=== PATIENT | male | born 1980 | race Caucasian/White ===

== ENCOUNTER 2017-05-18 10:48 | Emergency (ER) | payer MEDICAID ==
[2017-05-18 10:53] VITALS: BP 105/73; PULSE 66; RESP 16; TEMP 98.2; O2SAT 96
--- NOTE | 2017-05-18 11:40 | EDPHY ---
H & P Time Seen by Provider: 05/18/17 11:00 HPI/ROS: CHIEF COMPLAINT: Left calf pain HISTORY OF PRESENT ILLNESS: 36-year-old male presents to the emergency department with pain in his left calf. Patient was playing basketball last night and felt a pop in his left calf. He is able to ambulate, however this does cause pain. Denies any other trauma or injury. ROS: Denies numbness or tingling in his toes, swelling in his left calf, pain in his left ankle or knee. Past Medical/Surgical History: Orthopedic surgery, facial implants Social History: Single and lives in [place] Smoking Status: Never smoked Physical Exam: On exam there is no calf swelling. No ecchymosis. No abrasions or puncture wounds. He has reproducible pain with palpation to the left distal calf. There is no palpable deformity although patient has reproducible pain with palpation. Achilles tendon is intact. Patient is able to fully dorsi and plantar flex. He is able to walk normally however. No palpable bony tenderness in his left ankle or left knee. Normal sensation to light touch with normal 2 point discrimination. Constitutional: Initial Vital Signs Temperature (C) 36.8 C 05/18/17 10:51 Heart Rate 66 05/18/17 10:51 Respiratory Rate 16 05/18/17 10:51 Blood Pressure 105/73 05/18/17 10:51 O2 Sat (%) 96 05/18/17 10:51 O2 Delivery Mode Room Air Allergies/Adverse Reactions: metoclopramide HCl [From Reglan] Allergy (Verified 04/02/16 20:44) Home Medications: Medication Instructions Recorded ADDERALL 12.5 MG TABLET 05/18/17 MDM/Departure - MDM Procedures: Patient was placed in a Conti boot and examined post application in good placement with normal FLATWORK FINISHER. ED Course/Re-evaluation: I do not think imaging studies are indicated. The patient likely has partial gastrocnemius or soleus tear. His Achilles tendon is intact. The patient was placed in a Conti boot and given orthopedic referral. Patient was comfortable with this plan. - Depart Disposition: Home, Routine, Self-Care Clinical Impression: Gastrocnemius strain, left Qualifiers: Encounter type: initial encounter Qualified Code(s): S86.112A - Strain of other muscle(s) and tendon(s) of posterior muscle group at lower leg level, left leg, initial encounter Gastrocnemius muscle tear Qualifiers: Encounter type: initial encounter Laterality: left Qualified Code(s): S86.112A - Strain of other muscle(s) and tendon(s) of posterior muscle group at lower leg level, left leg, initial encounter Condition: Good Instructions: Tendon Rupture (ED) Additional Instructions: Gallito grahamot for comfort and support. Weightbear as tolerated. Follow up with orthopedic surgeon next to recheck. Ibuprofen 600 mg every 8 hr as needed for pain Referrals: Corrie Shannon MD [Medical Doctor] - 2-3 days without fail (Orthopedic surgeon on- call)
== END 2017-05-18 11:50 | disposition home or self-care (01) ==
DX: S86.112A Strain of other muscle(s) and tendon(s) of posterior muscle group at lower leg level, left leg, initial encounter (principal); X58.XXXA Exposure to other specified factors, initial encounter; Y99.8 Other external cause status; Y93.67 Activity, basketball
CPT/HCPCS: L4386

== ENCOUNTER 2017-06-20 18:05 | Emergency (ER) | payer MEDICAID ==
[2017-06-20] MEDS ORDERED: ONDANSETRON DISINTEGRATING 4 MG TAB PO ONE (18:36)
[2017-06-20] MEDS ORDERED: IBUPROFEN 600 MG TAB PO ONE (18:36)
[2017-06-20] MEDS ORDERED: ACETAMINOPHEN 500 MG TAB PO ONE (18:53)
[2017-06-20 19:48] VITALS: RESP 18; O2SAT 97
[2017-06-20] MEDS ORDERED: NS 1,000 ML IV ONE ×2 (20:09)
[2017-06-20] MEDS ORDERED: DEXAMETHASONE 10 MG/ML VIAL IVP ONE (20:10)
[2017-06-20] MEDS ORDERED: KETOROLAC 30 MG/1 ML SDV IVP ONE (20:10)
--- NOTE | 2017-06-20 20:18 | EDPHY ---
H & P Time Seen by Provider: 06/20/17 18:53 HPI/ROS: HPI Flu symptoms. 28-year-old male by private vehicle. This patient reports 4 days of intermittent high fever, sweats, sore throat, intermittent dry cough, and intermittent dull, gradual onset frontal headache. He reports that for 2 years he had this same group of symptoms every 6 weeks and was seen in our emergency department multiple times for this. No clear diagnosis was ever established. He was referred to infectious disease. They did not have a a diagnosis for this. He then was asymptomatic for about a year and this illness returned 4 days ago exactly as it has many times over the last several years. He denies any ill contacts. He is not on any medications currently. Is not immune compromised. ROS: Constitutional: As above. No weakness. Eyes: No discharge. No changes in vision. ENT: As above. No nasal congestion or rhinorrhea. Respiratory: As above. No shortness of breath. Cardiac: No chest pain, no palpitations. Gastrointestinal: No abdominal pain, no vomiting, no diarrhea. Genitourinary: No hematuria. No dysuria or increased frequency with urination. Musculoskeletal: No back pain. No neck pain. No myalgias or arthralgias. Skin: No rashes. Neurological: As above. No focal weakness or altered sensation. Past medical history: As above, facial surgery, orthopedic surgery. Social history: Nonsmoker. No alcohol. No several roommates. Physical Exam: General Appearance: Alert, no distress. This patient is responding to questions appropriately and in full sentences. This patient appears well- hydrated and well-nourished. Eyes: Pupils equal and round no pallor or injection. No lid edema, erythema or injection. ENT, Mouth: Mucous membranes are moist. Pharyngeal erythema, tonsillar and posterior pharyngeal exudates which are whitish, greater on the right side versus the left side. No asymmetry to suggest abscess. No stridor on auscultation of his neck. No voice changes. Respiratory: There are no retractions, lungs are clear to auscultation with good air movement bilaterally. Cardiovascular: Regular rate and rhythm. No murmur. Neurological: Motor sensory function is grossly intact. Cranial nerves are normal. Gait is normal. Skin: Warm and dry, no rashes. Musculoskeletal: Neck is supple and nontender. No pain on flexion of his neck. Extremities are symmetrical. All joints range without pain or impingement. Psychiatric: No agitation. No depression. Database: EKG: Imaging: Procedures: Emergency department course: Vital signs reviewed. He is febrile and tachycardic. IV placed. He was started on IV normal saline with 2 L to be given over the next 1-2 hours. He has no contraindications to NSAIDs. He will be given 30 mg of IV Toradol and 10 mg of IV Decadron for his pharyngitis. 9:10 p.m., patient re-evaluated. Resting comfortably at this time. He states that he feels much better after IV fluids and medications as above. I reviewed the results of his emergency department workup with him. He states that these results are identical every time he comes here. I discussed doing a lumbar puncture. He states that he has had this done before and it was nondiagnostic. He declines this test. The patient competently engages in shared decision making. They demonstrate capacitance to make decisions. He feels comfortable going home now. I will give him a referral to ENT as well as Infectious Disease. Return to emergency department precautions were thoroughly reviewed with him. All of his questions were answered. He was discharged in good condition. Differential Diagnosis: The differential diagnosis on this patient includes but is not limited to mononucleosis, streptococcal pharyngitis, influenza, viral syndrome. Pneumonia , peritonsillar abscess, retropharyngeal abscess, tracheitis, meningitis, other serious bacterial infection unlikely. This represents a partial list of diagnoses considered. These considerations are based on history, physical exam , past history, reassessment and diagnostic testing. Smoking Status: Never smoked Constitutional: Initial Vital Signs Temperature (C) 39.4 C H 06/20/17 18:18 Heart Rate 108 H 06/20/17 18:18 Respiratory Rate 20 06/20/17 18:18 Blood Pressure 109/86 H 06/20/17 18:18 O2 Sat (%) 94 06/20/17 18:18 O2 Delivery Mode Room Air Allergies/Adverse Reactions: metoclopramide HCl [From Reglan] Allergy (Verified 04/02/16 20:44) Home Medications: Medication Instructions Recorded NK [No Known Home Meds] 06/20/17 Medical Decision Making - Diagnostics Imaging Results: Imaging Impressions Chest X-Ray 06/20/17 18:53 Impression: Normal. - Data Points Laboratory Results: Laboratory Results 06/20/17 20:15 06/20/17 20:15 06/20/17 06/20/17 06/20/17 Unknown 20:15 20:15 WBC RBC Hgb Hct MCV MCH MCHC RDW Plt Count MPV Neut % (Auto) Lymph % (Auto) Grant % (Auto) Eos % (Auto) Baso % (Auto) Nucleat RBC Rel Count Absolute Neuts (auto) Absolute Lymphs (auto) Absolute Monos (auto) Absolute Eos (auto) Absolute Basos (auto) Absolute Nucleated RBC Immature Gran % Immature Gran # Sodium 135 mEq/L mEq/L (135-145) Potassium 3.5 mEq/L mEq/L (3.5-5.2) Chloride 98 mEq/L mEq/L (97-110) Carbon Dioxide 23 mEq/l mEq/l (22-31) Anion Gap 14 mEq/L mEq/L (8-16) BUN 17 mg/dL mg/dL (7-23) Creatinine 0.9 mg/dL mg/dL (0.7-1.3) Estimated GFR > 60 Glucose 141 mg/dL H mg/dL (70-100) Calcium 9.5 mg/dL mg/dL (8.5-10.4) Nasal Influenza A PCR Nasal Influenza B PCR Monoscreen NEGATIVE (NEGATIVE) Group A Strep Screen Group A Strep DNA Pending 06/20/17 06/20/17 06/20/17 20:15 20:05 18:40 WBC 15.02 10^3/uL H 10^3/uL (3.80-9.50) RBC 4.78 10^6/uL 10^6/uL (4.40-6.38) Hgb 15.4 g/dL g/dL (13.7-17.5) Hct 42.7 % % (40.0-51.0) MCV 89.3 fL fL (81.5-99.8) MCH 32.2 pg pg (27.9-34.1) MCHC 36.1 g/dL g/dL (32.4-36.7) RDW 11.8 % % (11.5-15.2) Plt Count 223 10^3/uL 10^3/uL (150-400) MPV 9.0 fL fL (8.7-11.7) Neut % (Auto) 78.7 % H % (39.3-74.2) Lymph % (Auto) 8.5 % L % (15.0-45.0) Grant % (Auto) 11.9 % % (4.5-13.0) Eos % (Auto) 0.0 % L % (0.6-7.6) Baso % (Auto) 0.5 % % (0.3-1.7) Nucleat RBC Rel Count 0.0 % % (0.0-0.2) Absolute Neuts (auto) 11.82 10^3/uL H 10^3/uL (1.70-6.50) Absolute Lymphs (auto) 1.28 10^3/uL 10^3/uL (1.00-3.00) Absolute Monos (auto) 1.78 10^3/uL H 10^3/uL (0.30-0.80) Absolute Eos (auto) 0.00 10^3/uL L 10^3/uL (0.03-0.40) Absolute Basos (auto) 0.08 10^3/uL 10^3/uL (0.02-0.10) Absolute Nucleated RBC 0.00 10^3/uL 10^3/uL (0-0.01) Immature Gran % 0.4 % % (0.0-1.1) Immature Gran # 0.06 10^3/uL 10^3/uL (0.00-0.10) Sodium Potassium Chloride Carbon Dioxide Anion Gap BUN Creatinine Estimated GFR Glucose Calcium Nasal Influenza A PCR NEGATIVE FOR FLU A (NEGATIVE) Nasal Influenza B PCR NEGATIVE FOR FLU B (NEGATIVE) Monoscreen Group A Strep Screen NEGATIVE (NEGATIVE) Group A Strep DNA Medications Given: Discontinued Medications Acetaminophen (Tylenol) 1,000 mg PO EDNOW ONE Stop: 06/20/17 18:54 Last Admin: 06/20/17 19:46 Dose: 1,000 mg Dexamethasone (Decadron Injection) 10 mg IVP EDNOW ONE Stop: 06/20/17 20:11 Last Admin: 06/20/17 20:18 Dose: 10 mg Sodium Chloride (Ns) 1,000 mls @ 0 mls/hr IV ONCE ONE; Wide Open PRN Reason: Protocol Stop: 02/06/18 20:10 Last Admin: 06/20/17 20:17 Dose: 1,000 mls Sodium Chloride (Ns) 1,000 mls @ 0 mls/hr IV ONCE ONE; Wide Open PRN Reason: Protocol Stop: 06/20/17 20:10 Last Admin: 06/20/17 20:19 Dose: 1,000 mls Ibuprofen (Motrin) 600 mg PO EDNOW ONE Stop: 06/20/17 18:37 Last Admin: 06/20/17 18:42 Dose: 600 mg Ketorolac Tromethamine (Toradol) 30 mg IVP EDNOW ONE Stop: 06/20/17 20:11 Last Admin: 06/20/17 20:18 Dose: 30 mg Ondansetron HCl (Zofran Odt) 4 mg PO EDNOW ONE Stop: 06/20/17 18:37 Last Admin: 06/20/17 18:40 Dose: 4 mg Departure - Departure Disposition: Home, Routine, Self-Care Clinical Impression: Pharyngitis, Viral syndrome Condition: Good Instructions: Viral Syndrome (ED), Pharyngitis (ED) Additional Instructions: Read and follow provided instructions. Follow-up with ENT and Infectious Disease as discussed for for evaluation within the next 2-3 days. Call their office is tomorrow morning at 9:00 a.m.. Explain this is for an emergency department follow-up. You can start taking ibuprofen tomorrow after 12 noon as discussed for pain control. Ibuprofen dosin mg every 6 hours with meals for the next 3 days only. Take only as needed for pain. You can take Tylenol as directed with ibuprofen for control of fever. Keep yourself well hydrated by drinking plenty of fluids. A good fluid to drink is Gatorade mixed with water in a 1-1 dilution over ice. Return to the emergency department for worsening symptoms, worsened cough, difficulty breathing, worsening sore throat, weakness, high fever or other serious concerns. Referrals: NEISHA HERNANDEZ [Other] - As per Instructions [facility] (ED,. [Edm Groups for Call Sched] - As per Instructions Maynor Hernandez MD [Medical Doctor] - As per Instructions
[2017-06-20 20:24] LABS: PLATELET COUNT 223 10^3/uL (150-400)
[2017-06-20 21:25] VITALS: BP 121/77; PULSE 85; TEMP 99.9
== END 2017-06-20 21:25 | disposition home or self-care (01) ==
DX: J02.8 Acute pharyngitis due to other specified organisms (principal); B97.89 Other viral agents as the cause of diseases classified elsewhere; E86.9 Volume depletion, unspecified
CPT/HCPCS: 96374; J1100; J1885

== ENCOUNTER 2017-08-20 15:35 | Emergency (ER) | payer MEDICAID ==
--- NOTE | 2017-08-20 16:12 | EDPHY ---
H & P Stated Complaint: gastroc rupture may/rehabbing/swelling l leg/coughed up some blood Time Seen by Provider: 08/20/17 16:11 HPI/ROS: CHIEF COMPLAINT: Left leg swelling, spitting up blood HISTORY OF PRESENT ILLNESS: The patient is a 36 y/o male complaining of left leg swelling and pain 10 weeks out from a calf muscle rupture. He also reports hemoptysis this morning after using a THC edible. After injuring his leg in the beginning of May, he has kept the leg immobilized and started PT one week ago. He's noticed slow improvement since the original injury. On Monday after a PT session, he had pain in his left calf as severe as the first day of his injury. He had difficulty standing due to pain and noticed increased swelling making it difficult to wear his shoe and discoloration around his ankle. He took ibuprofen for pain and last night used a THC edible to help him sleep. This morning he woke "with a mucus feeling in my throat" and spit up some blood; he thinks this could be related to his recent tonsil issues (recurrent tonsillitis ) or maybe to the THC edible he consumed. His leg pain is not worse with palpation and the discoloration and pain with standing has improved today. He denies hematemesis, blood in stool, abdominal pain, chest pain, dyspnea, fever, cough, recent illness, or recent trauma. REVIEW OF SYSTEMS: A ten point review of systems was performed and is negative with the exception of the items mentioned in the HPI. Past medical history: Recurrent strep infection scheduled for tonsillectomy this month Past surgical history: Facial surgery, orthopedic surgery. 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 He is not . Orthopedist: GWYN oRsario with Dr. Shannon. General Appearance: Alert. Vital signs reviewed. Blood pressure 110/95. Eyes: Pupils equal and round, no conjunctival injection, no discharge. Anicteric. ENT, Mouth: Mucous membranes are moist, no oropharyngeal erythema or edema. Tiny ecchymotic spots on lower lip. Neck: No lymphadenopathy, supple. Respiratory: Lungs are clear to auscultation; no wheezes, rales, or rhonchi. Cardiovascular: Regular rate and rhythm; no murmur, rub, or gallop. Gastrointestinal: Abdomen is soft and nontender, no masses or organomegaly, bowel sounds normal. Skin: Warm and dry, no rashes on exposed skin, normal color. Back: Nontender to palpation over the thoracolumbar spine. No CVAT. Extremities: No lower extremity edema, no obvious calf tenderness or swelling. I do not appreciate bruising. He is able to flex and extend at the left knee and ankle without difficulty. Neurological: Alert and oriented. Moving all four extremities easily and equally. Psychiatric: Normal affect. - Personal History Current Tetanus/Diphtheria Vaccine: Yes Tetanus Vaccine Date: <10 YEARS - Medical/Surgical History Hx Asthma: No Hx Chronic Respiratory Disease: No Hx Diabetes: No Hx Cardiac Disease: No Hx Renal Disease: No Hx Cirrhosis: No Hx Alcoholism: No Hx HIV/AIDS: No Hx Splenectomy or Spleen Trauma: No Other PMH: ortho surg, FACIAL IMPLANT - Social History Smoking Status: Never smoked Constitutional: Initial Vital Signs Temperature (C) 37 C 08/20/17 15:39 Heart Rate 79 08/20/17 15:39 Respiratory Rate 18 08/20/17 15:39 Blood Pressure 110/95 H 08/20/17 15:39 O2 Sat (%) 94 08/20/17 15:39 O2 Delivery Mode Room Air Allergies/Adverse Reactions: metoclopramide HCl [From Reglan] Allergy (Verified 08/20/17 15:39) MOOD ALTERATION Home Medications: Medication Instructions Recorded Adderall 10 MG (*) BID 08/17/17 Herbals/Supplements -Info Only DAILY 08/17/17 Thc Edibles 08/20/17 Medical Decision Making - Diagnostics Imaging: Discussed imaging studies w/ machine scallop cutter Radiologist ED Course/Re-evaluation: This is a 36 y/o male with history of left gastrocnemius tear 10 weeks ago who presents with left calf pain, swelling, and bruising after a PT session on Monday, 2 days ago. His exam is completely benign. Low suspicion for DVT; however, he is concerned about this and it is simple to rule out. Left leg US ordered. Left leg US: negative Reevaluated patient and discussed findings. He will follow up with his PT/ orthopedist as needed. Return precautions discussed. He is comfortable with this plan. Differential Diagnosis: Considered a differential diagnosis that includes but is not limited to over aggressive physical therapy causing resurgence of his pain, DVT, superficial thrombophlebitis, Corado cyst, compartment syndrome, and infection. Departure - Departure Disposition: Home, Routine, Self-Care Clinical Impression: Leg pain Qualifiers: Laterality: left Qualified Code(s): M79.605 - Pain in left leg Condition: Good Instructions: Leg Pain (ED) Additional Instructions: Follow up with your orthopedist and/or physical therapist this week for continued symptoms. Return to the ED for worsening of condition. Referrals: CHELSEA HERNANDEZ [Other] - As per Instructions Report Scribed for: Lyndsey Ma Report Scribed by: Amparo Cuevas Date of Report: 08/20/17 Time of Report: 16:49 Physician Review and Approval Statement: 08/25/17 15:27 Portions of this note were transcribed by the site medical director. I, Dr. Lyndsey Ma, personally performed the history, physical exam, and medical decision- making; and confirmed the accuracy of the information in the transcribed note.
[2017-08-20 17:41] VITALS: BP 115/68
== END 2017-08-20 17:43 | disposition home or self-care (01) ==
DX: M79.605 Pain in left leg (principal)

== ENCOUNTER 2017-08-28 11:29 | Observation (INO) | payer MEDICAID ==
[2017-08-28] MEDS ORDERED: LR 1,000 ML IV ONE (11:46)
[2017-08-28] MEDS ORDERED: ceFAZolin 2 GM/SWFI 2 GM/20 ML SYR IVP ONE (11:58)
[2017-08-28] MEDS ORDERED: DEXAMETHASONE 10 MG/ML VIAL IVP ONE (11:58)
[2017-08-28] MEDS ORDERED: BUPIVACAINE 0.25% 30 ML SDV ONE (12:19)
--- NOTE | 2017-08-28 12:19 | PDHPUP ---
History & Physical Update H&P update statement: This history and physical update is based on an assessment of the patient which was completed after admission or registration (within 24 hours), but prior to the surgery/procedure. H&P update: H&P reviewed & patient examined, no change in patient's condition since H&P completed
[2017-08-28] MEDS ORDERED: MIDAZOLAM 2 MG/2 ML VIAL ONE (12:25)
[2017-08-28] MEDS ORDERED: fentaNYL 250 MCG/5 ML INJ ONE (12:25)
[2017-08-28] MEDS ORDERED: DEXAMETHASONE 4 MG/ML VIAL ONE ×2 (12:26)
[2017-08-28] MEDS ORDERED: LIDOCAINE 2% 100 MG/5 ML SYR ONE (12:26)
[2017-08-28] MEDS ORDERED: RANITIDINE 50 MG/2 ML VIAL ONE (12:26)
[2017-08-28] MEDS ORDERED: ROCURONIUM 50 MG/5 ML VIAL ONE (12:26)
[2017-08-28] MEDS ORDERED: PROPOFOL 200 MG/20 ML VIAL ONE (12:26)
[2017-08-28] MEDS ORDERED: ONDANSETRON 4 MG/2 ML VIAL IVP PRN ×2 (13:25→13:38)
[2017-08-28] MEDS ORDERED: D5W 1/2 NS 1,000 ML IV SCH (13:30)
[2017-08-28] MEDS ORDERED: fentaNYL 100 MCG/2 ML INJ IVP PRN (13:38)
[2017-08-28] MEDS ORDERED: ALBUTEROL 3 ML DEYVIAL IH PRN (13:38)
[2017-08-28] MEDS ORDERED: oxyCODONE IR 5 MG TAB PO PRN (13:38)
[2017-08-28] MEDS ORDERED: NALOXONE HCL 0.4 MG/ML INJ IVP PRN (13:38)
[2017-08-28] MEDS ORDERED: HYDROCODONE/APAP 5/325 TAB PO PRN (13:38)
[2017-08-28] MEDS ORDERED: ACETAMINOPHEN 500 MG TAB PO PRN (13:38)
--- NOTE | 2017-08-28 13:40 | POSTANESTH ---
Post Anesthetic Evaluation Cardiovascular Status: Similar to Pre-Op Cond Respiratory Status: Similar to Pre-op Cond. Level of Consciousness/Mental Status: Mildly Sleepy, Arousable Pain Control: Adequate, Prn Tx Ordered Nausea/Vomiting Control: Adequate, Prn Tx Ordered Complications Possibly Related to Anesthesia: None Noted
[2017-08-28] MEDS: HYDROCOD/APAP 7.5/325 IN 15ML UDCUP PO PRN (19:12)
--- NOTE | 2017-08-29 08:57 | SOAPPROG ---
SOAP Progress Note Assessment/Plan: Assessment: 36 year old POD 1 s/p tonsillectomy. Doing well. - Discharge home this AM - Follow-up with our office in 2 weeks 08/29/17 08:56 Subjective: POD 1 s/p tonsillectomy. Doing well. Objective: Vital Signs Temp Pulse Resp BP Pulse Ox 36.5 C 69 16 109/63 93 08/29/17 04:00 08/29/17 04:00 08/29/17 04:00 08/29/17 04:00 08/29/17 04:00 08/28/17 08/29/17 08/30/17 05:59 05:59 05:59 Intake Total 2704 Output Total 1750 Balance 954 Normal postop appearance ICD10 Worksheet Patient Problems: Problems Problem Status Onset Abrasion Acute Fever Acute Leg pain Acute Pharyngitis Acute
[2017-08-29] MEDS: HYDROCOD/APAP 7.5/325 IN 15ML UDCUP PO PRN (09:14)
[2017-08-29 09:33] VITALS: BP 116/77
--- NOTE | 2017-08-29 13:21 | GOP ---
[f rep st] OPERATIVE REPORT DATE OF OPERATION: 08/28/2017 SURGEON: Frank Frederick MD ANESTHESIA: General. PREOPERATIVE DIAGNOSIS: Chronic tonsillitis with tonsillar hyperplasia. POSTOPERATIVE DIAGNOSIS: Chronic tonsillitis with tonsillar hyperplasia. PROCEDURE PERFORMED: Tonsillectomy. FINDINGS: Hyperplastic tonsils with deep crypts. SPECIMENS: Tonsils. ESTIMATED BLOOD LOSS: Minimal. INDICATIONS: The patient is a 36-year-old man with years of persistent tonsillar infection difficult ies who presents for surgery in hopes of decreasing his sore throat problems. DESCRIPTION OF PROCEDURE: Patient was taken to the OR and positively identified, placed on monitors and general anesthesia was induced. The table was then turned 90 degrees. He was placed in the supi ne position with a shoulder and head drape. The Lai mouth gag was used to visualize the oropharynx . He was placed in suspension. The peritonsillar tissues were infiltrated on either side with 1.5 c c of 0.25% Marcaine with 1:200,000 epinephrine. The tonsils was then sequentially excised with the C oblation wand at an ablation setting of 7 and a coagulation setting of 5. Following removal of tonsi ls, the gag was released for several minutes and reopened, there were no signs of any bleeding. A fu rther 1.5 cc of local anesthetic was infiltrated in either tonsillar fossa again with care being take n not to inject it intravascularly. At this point, the case was terminated. The anesthesia was disc ontinued. He was extubated and taken to postop care unit in good condition having tolerated the proc edure well. COMPLICATIONS: None. /[id number]/[id number]
== END 2017-08-29 10:40 | disposition home or self-care (01) ==
LOC: FSGY 11:29 → F3E 13:36
PROVIDERS: ADMIT Otolaryngology; ATTEND Otolaryngology
PROC: 0CTPXZZ Resection of Tonsils, External Approach (ICD-10-PCS; principal; 2017-08-28 12:30)
DX: J35.01 Chronic tonsillitis (principal); J31.2 Chronic pharyngitis; Z87.09 Personal history of other diseases of the respiratory system
CPT/HCPCS: J0171; J0690; J1100; J2001; J2250; J2704; J2780; J3010